=== PATIENT | female | born 1935 | race Native Hawaiian/Other Pacific Islander ===

== ENCOUNTER 2017-12-02 09:30 | Outpatient (CLI) | payer OTHER, MEDICARE | END 2017-12-02 19:06 | disposition home or self-care (01) | LOC: MRI 09:30 | DX: M25.551 Pain in right hip (principal) ==

== ENCOUNTER 2018-03-23 11:57 | Outpatient (CLI) | payer OTHER, MEDICARE ==
[2018-03-23 12:26] LABS: PLATELET COUNT 282 K/uL (152-353)
[2018-03-23 12:35] LABS: POTASSIUM 3.3 mmol/L (3.6-5.2)
== END 2018-03-23 20:47 | disposition home or self-care (01) ==
LOC: RAD 11:57
PROVIDERS: Orthopaedic Surgery
DX: M16.11 Unilateral primary osteoarthritis, right hip (principal); Z01.818 Encounter for other preprocedural examination
CPT/HCPCS: 36415; 80048; 81000; 85027; 85610

== ENCOUNTER 2019-11-03 10:28 | Outpatient (CLI) | payer OTHER, MEDICARE | END 2019-11-03 21:53 | disposition home or self-care (01) | LOC: RAD 10:28 | DX: R60.0 Localized edema (principal) ==

== ENCOUNTER 2020-12-12 11:23 | Outpatient (CLI) | payer OTHER, MEDICARE ==
[2020-12-12 12:12] LABS: POTASSIUM 3.8 mmol/L (3.6-5.2)
== END 2020-12-12 23:21 | disposition home or self-care (01) ==
LOC: LABW 11:23
PROVIDERS: ATTEND Nurse Practitioner Adult Health
DX: I48.91 Unspecified atrial fibrillation (principal)
CPT/HCPCS: 36415; 80048

== ENCOUNTER 2021-06-07 08:27 | Outpatient (CLI) | payer OTHER, MEDICARE ==
[~2021-06-07] VITALS: Ht 162.6 cm; Wt 78.9 kg
== END 2021-06-07 19:07 | disposition home or self-care (01) ==
LOC: NM 08:27
PROVIDERS: ATTEND Specialist
DX: I48.0 Paroxysmal atrial fibrillation (principal)
CPT/HCPCS: A9500; J2785

== ENCOUNTER 2023-02-21 15:52 | Outpatient (CLI) | payer OTHER, MEDICARE | END 2023-02-21 20:21 | disposition home or self-care (01) | LOC: RAD 15:52 | PROVIDERS: ATTEND Registered Nurse | DX: M25.512 Pain in left shoulder (principal) ==

== ENCOUNTER 2023-08-28 16:01 | Outpatient (CLI) | payer OTHER, MEDICARE | END 2023-08-28 19:30 | disposition home or self-care (01) | LOC: RAD 16:01 | PROVIDERS: ATTEND Nurse Practitioner Family | DX: M54.12 Radiculopathy, cervical region (principal) ==

== ENCOUNTER 2023-09-10 10:09 | Outpatient (CLI) | payer OTHER, MEDICARE | END 2023-09-10 19:58 | disposition home or self-care (01) | LOC: RAD 10:09 | PROVIDERS: ATTEND Student in an Organized Health Care Education/Training Program | DX: M54.12 Radiculopathy, cervical region (principal); M47.812 Spondylosis without myelopathy or radiculopathy, cervical region; M54.16 Radiculopathy, lumbar region; M47.816 Spondylosis without myelopathy or radiculopathy, lumbar region; M48.062 Spinal stenosis, lumbar region with neurogenic claudication ==